=== PATIENT | male | born 1960 | race Caucasian/White ===

== ENCOUNTER → 2018-11-21 07:50 | Outpatient (CLI) | payer OTHER, MEDICAID, SELFPAY ==
--- NOTE | 2018-11-21 | DI.MRI.S_ITS ---
PROCEDURE: MR HEAD/BRAIN WO CON INDICATIONS: Sudden visual loss, right eye TECHNIQUE: Noncontrast axial T1 spin echo, axial T2 fast spin echo, sagittal and axial FLAIR, coronal T2 fast spin echo, axial gradient echo, axial diffusion and ADC through the brain. COMPARISON: None. FINDINGS: Image quality: Excellent. CSF Spaces: Basal cisterns are patent. No extra-axial fluid collections. Ventricles are normal in size and shape. Brain: No intracranial masses or hemorrhage. Rangel/white matter interface is normal. Brainstem appears normal. Diffusion-weighted images demonstrate no acute ischemic insult. No chronic ischemic insults. Normal intravascular flow voids are present. Skull and face: Calvarium has normal marrow signal. Orbits appear normal. Sinuses: Mild mucosal thickening is seen within the right maxillary sinus. The paranasal sinuses otherwise appear clear. There is a mild amount of abnormal fluid seen within the left maxillary sinus. IMPRESSION: No imaging explanation is found for this patient's presenting symptoms. No findings of acute or subacute infarction can be seen. Dictated by: Skyler Culp M.D. on 11/21/2018 at 8:40 Approved by: Skyler Culp M.D. on 11/21/2018 at 8:41
== END ==
PROVIDERS: Visit Provider Psychiatry & Neurology Neurology
DX: H53.131 Sudden visual loss, right eye (principal)
CPT/HCPCS: 70551

== ENCOUNTER → 2023-03-28 13:42 | Outpatient (CLI) | payer OTHER, MEDICAID, SELFPAY ==
--- NOTE | 2023-03-28 | DI.ECHO.S_ITS ---
[facility] +---------+ [facility] +---------+ : : [address] : : : : [id number] : : : : Phone: [phone]---------+ Echocardiogram Report + + :Name: ISELA ZAMARRIPA Study Date: 03/28/2023 Height: 68 in : :[facility] ReadingLocation: Weight: 155 lb : : Gender: Male BSA: 1.8 m2 : :: 1960 Age: 62 yrs BP: 110/75 mmHg: :Reason For Study: AORTIC INSUFFICIENCY : :Ordering Physician: VANESSA, : :CROW Performed By: Eloisa Centeno : :Referring: CROW SCHNEIDER : + + Interpretation Summary 1) Normal left ventricular thickness and size with mildly reduced function (EF 45-50%). 2) Normal right ventricular size and function. 3) There is mild to moderate aortic regurgitation. Aortic valve is trileaflet and aortic root measures normal. 4) Compared to the Echo done 11/15/2017, LVEF has decreased slightly from 50- 55% to 45-50% on this study. Procedure: A two-dimensional transthoracic echocardiogram with color flow and Doppler was performed. The study quality was technically adequate. There is no prior echocardiogram noted for this patient. The patient had a bundle branch block rhythm during the exam. The heart rate ranged between 71-81 bpm during the study. Left Ventricle: The left ventricle is normal in size and wall thickness. The ejection fraction is estimated to be 45-50%. There is mild global hypokinesis of the left ventricle. Diastolic parameters suggest a relaxation abnormality of the left ventricle, consistent with probable normal filling pressures. Right Ventricle: The right ventricle is normal in size and function. Atria: The left atrial size is normal. Right atrial size is normal. There is no Doppler evidence for an interatrial shunt. Mitral Valve: The mitral valve is grossly normal. There is trace mitral regurgitation. Aortic Valve: The aortic valve is trileaflet. There is no aortic valve stenosis. There is an eccentric jet of aortic insufficiency directed against the anterior mitral leaflet. There is mild to moderate aortic regurgitation. Tricuspid Valve: The tricuspid valve is normal in structure and function. There is trace tricuspid regurgitation. Pulmonary artery pressures cannot be estimated because of the lack of a measurable TR jet velocity. Pulmonic Valve: The pulmonic valve is not well seen, but is grossly normal. There is a trace or physiologic amount of pulmonic regurgitation. Great Vessels: The aortic root is normal size. The dimensions of the ascending aorta are normal. The IVC is of normal diameter and collapses greater than 50% with a sniff. This suggests a low right atrial pressure of 3 mm Hg. Pericardium/ Pleura There is no pericardial effusion. There is no pleural effusion. MMode/2D Measurements & Calculations LVIDd: 4.9 cm LVOT diam: 2.0 cm LVIDs: 3.8 cm Ao root diam: 3.5 cm FS: 22.5 % asc Aorta Diam: 3.1 cm EPSS: 1.1 cm Ao Arch Diam (Prox Trans): 2.3 cm IVSd: 0.73 cm LVPWd: 0.85 cm LV rothman. diameter/BSA (cm/m^2): 2.7 LV sys. diameter/BSA (cm/m^2): 2.1 LA A2 area: 12.0 cm2 RA long axis: 4.5 cm LA A4 area: 10.8 cm2 RA area: 10.9 cm2 LA length (vol): 3.9 cm RA vol: 22.4 ml LA vol: 28.1 ml RA : 12.2 ml/m2 LA vol index: 15.3 ml/m2 IVC diam: 1.1 cm RVD1 (basal): 2.4 cm RVD2 (mid): 2.0 cm TAPSE: 1.7 cm Doppler Measurements & Calculations Ao V2 max: 106.0 cm/sec LVOT Max Jevon: 85.9 cm/sec Ao V2 mean: 75.1 cm/sec LV V1 max P.9 mmHg Ao max P.5 mmHg LV V1 VTI: 16.1 cm Ao mean P.5 mmHg MUSTAPHA(I,D): 2.6 cm2 Ao V2 VTI: 20.0 cm MUSTAPHA(V,D): 2.6 cm2 sev ratio: 0.80 MUSTAPHA indexed to BSA (cm^2/m^2): 1.4 MV E max jevon: 42.4 cm/sec PA V2 max: 75.9 cm/sec MV A max jevon: 51.8 cm/sec PA V2 mean: 55.5 cm/sec MV E/A: 0.82 PA mean P.4 mmHg Med Peak E' Jevon: 5.2 cm/sec PA pr(Accel): 31.0 mmHg E/E' med: 8.1 Lat Peak E' Jevon: 9.3 cm/sec E/E' lat: 4.6 E/e' average: 6.3 MV dec time: 0.30 sec SV(LVOT): 51.5 ml Reading Physician:04:48 PM
== END ==
PROVIDERS: Referring Provider Internal Medicine Cardiovascular Disease; Visit Provider Internal Medicine Cardiovascular Disease
DX: I35.1 Nonrheumatic aortic (valve) insufficiency (principal)
CPT/HCPCS: 93017; 93306